=== PATIENT | female | born 1990 | race Caucasian/White ===

== ENCOUNTER → 2017-07-12 | Outpatient (CLI) | payer OTHER ==
[~2017-07-12] MED LIST: CALC600T5; CLON.5 PO; DEPA500T3 PO; ENAL5TAB PO; GEOD80CA PO; GUAN2ER PO; LACT10SO47; LEVO100T5 PO; MEDR150I9 IM; OMEGCAP21; QUET400XR PO; VENTAER INH; VITATAB PO
--- NOTE | 2017-07-12 18:46 | EKG ---
Date Performed: 07/12/2017 Time Performed: 08:00:34 PTAGE: 27 years EKG: Sinus tachycardia. Short RI interval Anterior T wave changes are nonspecific Borderline ECG Since the prior tracing, there has been no significant change PREVIOUS TRACING : 03/01/2015 12.42 DOCTOR: Mary Barnard Interpretating Date/Time 07/12/2017 18:43:30
== END ==
LOC: HCAV 07:46
DX: F63.81 Intermittent explosive disorder (principal); R94.31 Abnormal electrocardiogram [ECG] [EKG]
CPT/HCPCS: 93005

== ENCOUNTER 2017-10-18 12:44 | Emergency (ER) | payer OTHER ==
[~2017-10-18] VITALS: Ht 170.2 cm; Wt 90.0 kg
[2017-10-18 12:59] VITALS: BP 189/91; PULSE 86; RESP 26; TEMP 97.9; O2SAT 98
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
[2017-10-18 15:00] VITALS: BP 134/81; PULSE 126; RESP 20; O2SAT 98
[2017-10-18 15:58] LABS: AUTOMATED NEUTROPHIL # 11.7 TH/MM3 (1.8-7.7); BASOPHIL # 0.1 TH/MM3 (0-0.2); BASOPHIL % 0.8 % (0.0-2.0); EOSINOPHIL # 0.1 TH/MM3 (0-0.4); EOSINOPHIL % 0.4 % (0.0-4.0); HEMATOCRIT 46.1 % (35.0-46.0); HEMOGLOBIN 15.4 GM/DL (11.6-15.3); LYMPH % 24.7 % (9.0-44.0); LYMPHOCYTE # 4.3 TH/MM3 (1.0-4.8); MEAN CORPUSCULAR HEMOGLOBIN 27.3 PG (27.0-34.0); MEAN CORPUSCULAR HGB CONC 33.3 % (32.0-36.0); MEAN PLATELET VOLUME 8.4 FL (7.0-11.0); MONO % 6.1 % (0.0-8.0); PLATELET COUNT 297 TH/MM3 (150-450); RED BLOOD COUNT 5.62 MIL/MM3 (4.00-5.30); RED CELL DISTRIBUTION WIDTH 15.4 % (11.6-17.2); WHITE BLOOD COUNT 17.2 TH/MM3 (4.0-11.0)
[2017-10-18 16:24] LABS: ALBUMIN 3.6 GM/DL (3.4-5.0); AST (GOT) 24 U/L (15-37); BICARBONATE 21.7 MEQ/L (21.0-32.0); BLOOD UREA NITROGEN 22 MG/DL (7-18); CALCIUM 9.4 MG/DL (8.5-10.1); CHLORIDE 108 MEQ/L (98-107); CREATININE 1.32 MG/DL (0.50-1.00); GLOMERULAR FILTRATION RATE 49 ML/MIN (>89); GLUCOSE,RANDOM 118 MG/DL (74-106); SODIUM (NA) 143 MEQ/L (136-145)
[2017-10-18] MEDS ORDERED: LURA80 PO (16:34)
[2017-10-18] MEDS ORDERED: ENAL10TA PO (16:34)
[2017-10-18] MEDS ORDERED: FLUTI220I INH (16:34)
[2017-10-18] MEDS ORDERED: DIVA125T (16:34)
[2017-10-18] MEDS ORDERED: LEVO125T4 PO (16:34)
[2017-10-18 16:35] LABS: ALKALINE PHOSPHATASE 112 U/L (45-117); ALT (GPT) 29 U/L (10-53); TOTAL BILIRUBIN ADULT 0.5 MG/DL (0.2-1.0); TOTAL PROTEIN 7.4 GM/DL (6.4-8.2)
[2017-10-18] MEDS ORDERED: DIVA250T PO (19:09)
[2017-10-18] MEDS ORDERED: clonazePAM 0.5 MG TAB PO ONE (20:15)
[2017-10-18] MEDS ORDERED: DIVALPROEX SODIUM DELAYED RELEASE 250 MG TAB PO SCH (21:00)
[2017-10-18] MEDS ORDERED: LURASIDONE 80 MG TAB PO SCH (21:00)
[2017-10-19] MEDS ORDERED: LEVOTHYROXINE SODIUM 125 MCG TAB PO SCH (09:00)
[2017-10-19] MEDS ORDERED: ENALAPRIL MALEATE 10 MG TAB PO SCH (09:00)
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
--- NOTE | 2017-10-19 13:45 | PD ---
Physical Exam Date Seen by Provider: October 19, 2017 Time Seen by Provider: 13:43 Narrative 27-year-old female has been seen and evaluated by psychiatrist and Stokes act was lifted. Patient states she feels comfortable going home. Her mother is on her way to pick her up. She denies suicidal or homicidal ideation. Data Data Last Documented VS Vital Signs Date Time Temp Pulse Resp B/P (MAP) Pulse Ox O2 Delivery O2 Flow Rate FiO2 10/18/17 15:00 126 20 134/81 (98) 98 Room Air 10/18/17 12:59 97.9 Orders Orders Complete Blood Count With Diff (10/18/17 13:45) Comprehensive Metabolic Panel (10/18/17 13:45) Thyroid Stimulating Hormone (10/18/17 13:45) Psych Screen (10/18/17 13:45) Drug Screen, Random Urine (10/18/17 13:45) Ed Urine Pregnancytest Poc (10/18/17 13:45) Diet Regular Basic (10/18/17 Dinner) Divalproex Dr (Depakomeghann You) (10/18/17 21:00) Enalapril (Vasotec) (10/19/17 09:00) Levothyroxine (Synthroid) (10/19/17 09:00) Lurasidone (Latuda) (10/18/17 21:00) Clonazepam (Klonopin) (10/18/17 20:15) Diet Regular Basic (10/19/17 Breakfast) Diet Regular Basic (10/19/17 Lunch) Labs Laboratory Tests Test 10/18/17 12:45 10/18/17 15:00 Urine Opiates Screen NEG Urine Barbiturates Screen NEG Urine Amphetamines Screen NEG Urine Benzodiazepines Screen NEG Urine Cocaine Screen NEG Urine Cannabinoids Screen NEG White Blood Count 17.2 TH/MM3 Red Blood Count 5.62 MIL/MM3 Hemoglobin 15.4 GM/DL Hematocrit 46.1 % Mean Corpuscular Volume 82.0 FL Mean Corpuscular Hemoglobin 27.3 PG Mean Corpuscular Hemoglobin Concent 33.3 % Red Cell Distribution Width 15.4 % Platelet Count 297 TH/MM3 Mean Platelet Volume 8.4 FL Neutrophils (%) (Auto) 68.0 % Lymphocytes (%) (Auto) 24.7 % Monocytes (%) (Auto) 6.1 % Eosinophils (%) (Auto) 0.4 % Basophils (%) (Auto) 0.8 % Neutrophils # (Auto) 11.7 TH/MM3 Lymphocytes # (Auto) 4.3 TH/MM3 Monocytes # (Auto) 1.0 TH/MM3 Eosinophils # (Auto) 0.1 TH/MM3 Basophils # (Auto) 0.1 TH/MM3 CBC Comment DIFF FINAL Differential Comment Blood Urea Nitrogen 22 MG/DL Creatinine 1.32 MG/DL Random Glucose 118 MG/DL Total Protein 7.4 GM/DL Albumin 3.6 GM/DL Calcium Level 9.4 MG/DL Alkaline Phosphatase 112 U/L Aspartate Amino Transf (AST/SGOT) 24 U/L Alanine Aminotransferase (ALT/SGPT) 29 U/L Total Bilirubin 0.5 MG/DL Sodium Level 143 MEQ/L Potassium Level 4.4 MEQ/L Chloride Level 108 MEQ/L Carbon Dioxide Level 21.7 MEQ/L Anion Gap 13 MEQ/L Estimat Glomerular Filtration Rate 49 ML/MIN Thyroid Stimulating Hormone 3rd Gen 1.280 uIU/ML MDM Supervised Visit with ILA: No Diagnosis Primary Impression: Medical clearance for psychiatric admission Referrals: Psychiatrist Patient Instructions: General Instructions, Medical Clearance for Psychiatric Care (ED) Med/Other Pt SpecificInfo: No Change to Meds Disposition: 01 DISCHARGE HOME Condition: Stable VaibhavNancy October 19, 2017 13:45
== END 2017-10-19 14:01 | disposition home or self-care (01) ==
LOC: NEPJ 12:44
DX: F79 Unspecified intellectual disabilities (principal); F90.9 Attention-deficit hyperactivity disorder, unspecified type; J45.909 Unspecified asthma, uncomplicated; I10 Essential (primary) hypertension; E11.22 Type 2 diabetes mellitus with diabetic chronic kidney disease; H91.90 Unspecified hearing loss, unspecified ear; F20.9 Schizophrenia, unspecified
CPT/HCPCS: 80053; 80307; 84443; 84703; 85025; 99284

== ENCOUNTER 2017-11-04 17:14 | Emergency (ER) | payer OTHER ==
[~2017-11-04 17:14] MED LIST changes: -CALC600T5; -DEPA500T3 PO; +DIVA250T PO; +ENAL10TA PO; -ENAL5TAB PO; +FLUTI220I INH; -GEOD80CA PO; -GUAN2ER PO; -LACT10SO47; -LEVO100T5 PO; +LEVO125T4 PO; +LURA80 PO; -OMEGCAP21; -QUET400XR PO; -VENTAER INH; -VITATAB PO
[2017-11-04 17:45] VITALS: BP 111/59; PULSE 88; RESP 20; TEMP 98.1; O2SAT 98
[2017-11-04] MEDS ORDERED: OLANZapine IM 10 MG VIAL IM ONE (18:15)
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
--- NOTE | 2017-11-04 19:23 | PD ---
Data Data Last Documented VS Vital Signs Date Time Temp Pulse Resp B/P (MAP) Pulse Ox O2 Delivery O2 Flow Rate FiO2 11/04/17 17:45 98.1 88 20 111/59 (76) 98 Orders Orders Olanzapine Inj (Zyprexa Inj) (11/04/17 18:15) Complete Blood Count With Diff (11/04/17 18:02) Comprehensive Metabolic Panel (11/04/17 18:02) Psych Screen (11/04/17 18:02) Labs Laboratory Tests Test 11/04/17 19:20 White Blood Count 15.5 TH/MM3 Red Blood Count 5.38 MIL/MM3 Hemoglobin 14.6 GM/DL Hematocrit 43.6 % Mean Corpuscular Volume 80.9 FL Mean Corpuscular Hemoglobin 27.1 PG Mean Corpuscular Hemoglobin Concent 33.4 % Red Cell Distribution Width 15.3 % Platelet Count 247 TH/MM3 Mean Platelet Volume 8.1 FL Neutrophils (%) (Auto) 59.1 % Lymphocytes (%) (Auto) 32.5 % Monocytes (%) (Auto) 7.0 % Eosinophils (%) (Auto) 0.6 % Basophils (%) (Auto) 0.8 % Neutrophils # (Auto) 9.1 TH/MM3 Lymphocytes # (Auto) 5.0 TH/MM3 Monocytes # (Auto) 1.1 TH/MM3 Eosinophils # (Auto) 0.1 TH/MM3 Basophils # (Auto) 0.1 TH/MM3 CBC Comment AUTO DIFF Differential Total Cells Counted 100 Neutrophils % (Manual) 55 % Band Neutrophils % 2 % Lymphocytes % 34 % Monocytes % 6 % Eosinophils % 1 % Basophils % 2 % Neutrophils # (Manual) 8.8 TH/MM3 Differential Comment FINAL DIFF MANUAL Platelet Estimate NORMAL Platelet Morphology Comment NORMAL Blood Urea Nitrogen 27 MG/DL Creatinine 1.56 MG/DL Random Glucose 98 MG/DL Total Protein 6.6 GM/DL Albumin 3.4 GM/DL Calcium Level 9.5 MG/DL Alkaline Phosphatase 98 U/L Aspartate Amino Transf (AST/SGOT) 15 U/L Alanine Aminotransferase (ALT/SGPT) 24 U/L Total Bilirubin 0.2 MG/DL Sodium Level 141 MEQ/L Potassium Level 4.7 MEQ/L Chloride Level 108 MEQ/L Carbon Dioxide Level 21.8 MEQ/L Anion Gap 11 MEQ/L Estimat Glomerular Filtration Rate 40 ML/MIN [facility] Medical Record Reviewed: Yes Supervised Visit with ILA: No Narrative Course See previous providers notes for complete history of present illness. I was asked to follow-up in this patient's lab work for medical clearance for psychiatric evaluation. Lab work is been reviewed. WBC count is 15 which is actually improved from her previous visit. No left shift. No evidence of infectious process. The patient is medically cleared for psychiatric disposition. Diagnosis Primary Impression: Medical clearance for psychiatric admission Juan Childs Nov 04, 2017 19:23
[2017-11-04 19:48] LABS: AUTOMATED NEUTROPHIL # 9.1 TH/MM3 (1.8-7.7); BASOPHIL # 0.1 TH/MM3 (0-0.2); BASOPHIL % 0.8 % (0.0-2.0); EOSINOPHIL # 0.1 TH/MM3 (0-0.4); EOSINOPHIL % 0.6 % (0.0-4.0); HEMATOCRIT 43.6 % (35.0-46.0); HEMOGLOBIN 14.6 GM/DL (11.6-15.3); LYMPH % 32.5 % (9.0-44.0); MEAN CELL VOLUME 80.9 FL (80.0-100.0); MEAN CORPUSCULAR HEMOGLOBIN 27.1 PG (27.0-34.0); MEAN CORPUSCULAR HGB CONC 33.4 % (32.0-36.0); MEAN PLATELET VOLUME 8.1 FL (7.0-11.0); MONOCYTE # 1.1 TH/MM3 (0-0.9); NEUT % 59.1 % (16.0-70.0); PLATELET COUNT 247 TH/MM3 (150-450); RED BLOOD COUNT 5.38 MIL/MM3 (4.00-5.30); RED CELL DISTRIBUTION WIDTH 15.3 % (11.6-17.2); WHITE BLOOD COUNT 15.5 TH/MM3 (4.0-11.0)
[2017-11-04 20:29] LABS: ALKALINE PHOSPHATASE 98 U/L (45-117); ALT (GPT) 24 U/L (10-53); TOTAL BILIRUBIN ADULT 0.2 MG/DL (0.2-1.0); TOTAL PROTEIN 6.6 GM/DL (6.4-8.2)
[2017-11-04 20:34] LABS: BANDS 2 % (0-6); BASOPHILS 2 % (0-2); LYMPHOCYTES 34 % (9-44); MONOCYTES 6 % (0-8); NEUTROPHIL # MANUAL DIFF 8.8 TH/MM3 (1.8-7.7); POLYS (SEG NEUTROPHILS) 55 % (16-70)
[2017-11-04 20:35] LABS: ALBUMIN 3.4 GM/DL (3.4-5.0); AST (GOT) 15 U/L (15-37); BICARBONATE 21.8 MEQ/L (21.0-32.0); BLOOD UREA NITROGEN 27 MG/DL (7-18); CALCIUM 9.5 MG/DL (8.5-10.1); CHLORIDE 108 MEQ/L (98-107); CREATININE 1.56 MG/DL (0.50-1.00); GLOMERULAR FILTRATION RATE 40 ML/MIN (>89); GLUCOSE,RANDOM 98 MG/DL (74-106); SODIUM (NA) 141 MEQ/L (136-145)
[2017-11-05] MEDS ORDERED: ENALAPRIL MALEATE 10 MG TAB PO SCH (10:00)
[2017-11-05] MEDS ORDERED: clonazePAM 0.5 MG TAB PO SCH (10:00)
[2017-11-05] MEDS ORDERED: LURASIDONE 40 MG TAB PO ONE (10:30)
[2017-11-05] MEDS ORDERED: LURASIDONE 80 MG TAB PO ONE (10:30)
[2017-11-05] MEDS ORDERED: DIVALPROEX SODIUM DELAYED RELEASE 250 MG TAB PO ONE (10:30)
[2017-11-05 12:14] VITALS: BP 118/56; PULSE 90; RESP 16; TEMP 98.9; O2SAT 98
--- NOTE | 2017-11-05 14:32 | PD ---
Physical Exam Date Seen by Provider: Nov 05, 2017 Time Seen by Provider: 14:29 Narrative For full history and physical examination please see previous notes. Data Data Last Documented VS Vital Signs Date Time Temp Pulse Resp B/P (MAP) Pulse Ox O2 Delivery O2 Flow Rate FiO2 11/05/17 12:14 98.9 90 16 118/56 (76) 98 Room Air Orders Orders Olanzapine Inj (Zyprexa Inj) (11/04/17 18:15) Complete Blood Count With Diff (11/04/17 18:02) Comprehensive Metabolic Panel (11/04/17 18:02) Psych Screen (11/04/17 18:02) Diet Regular Basic (11/05/17 Breakfast) Clonazepam (Klonopin) (11/05/17 10:00) Divalproex (Rafa You) (11/05/17 21:00) Enalapril (Vasotec) (11/05/17 10:00) Lurasidone (Latuda) (11/05/17 21:00) Divalproex (Rafa You) (11/05/17 10:30) Lurasidone (Latuda) (11/05/17 10:30) Diet Regular Basic (11/05/17 Lunch) Ed Discharge Order (11/05/17 14:29) Labs Laboratory Tests Test 11/04/17 19:20 White Blood Count 15.5 TH/MM3 Red Blood Count 5.38 MIL/MM3 Hemoglobin 14.6 GM/DL Hematocrit 43.6 % Mean Corpuscular Volume 80.9 FL Mean Corpuscular Hemoglobin 27.1 PG Mean Corpuscular Hemoglobin Concent 33.4 % Red Cell Distribution Width 15.3 % Platelet Count 247 TH/MM3 Mean Platelet Volume 8.1 FL Neutrophils (%) (Auto) 59.1 % Lymphocytes (%) (Auto) 32.5 % Monocytes (%) (Auto) 7.0 % Eosinophils (%) (Auto) 0.6 % Basophils (%) (Auto) 0.8 % Neutrophils # (Auto) 9.1 TH/MM3 Lymphocytes # (Auto) 5.0 TH/MM3 Monocytes # (Auto) 1.1 TH/MM3 Eosinophils # (Auto) 0.1 TH/MM3 Basophils # (Auto) 0.1 TH/MM3 CBC Comment AUTO DIFF Differential Total Cells Counted 100 Neutrophils % (Manual) 55 % Band Neutrophils % 2 % Lymphocytes % 34 % Monocytes % 6 % Eosinophils % 1 % Basophils % 2 % Neutrophils # (Manual) 8.8 TH/MM3 Differential Comment FINAL DIFF MANUAL Platelet Estimate NORMAL Platelet Morphology Comment NORMAL Blood Urea Nitrogen 27 MG/DL Creatinine 1.56 MG/DL Random Glucose 98 MG/DL Total Protein 6.6 GM/DL Albumin 3.4 GM/DL Calcium Level 9.5 MG/DL Alkaline Phosphatase 98 U/L Aspartate Amino Transf (AST/SGOT) 15 U/L Alanine Aminotransferase (ALT/SGPT) 24 U/L Total Bilirubin 0.2 MG/DL Sodium Level 141 MEQ/L Potassium Level 4.7 MEQ/L Chloride Level 108 MEQ/L Carbon Dioxide Level 21.8 MEQ/L Anion Gap 11 MEQ/L Estimat Glomerular Filtration Rate 40 ML/MIN MDM Medical Record Reviewed: Yes Supervised Visit with ILA: No Narrative Course Patient was brought to the emergency department under Stokes act due to explosive behaviors at her residential facility. She was seen and evaluated emergency department, medically cleared. She was then evaluated by psychiatry. Patient was diagnosed with intellectual disability. Patient will be discharged back to [facility]. Diagnosis Primary Impression: Intellectual disability Referrals: Primary Care Physician Patient Instructions: General Instructions Additional Instruction: Follow-up with your primary doctor Follow-up with psychiatry Return to emergency department for any new or worsening symptoms Med/Other Pt SpecificInfo: No Change to Meds Disposition: 03 DISCHARGE TO SNF Condition: Stable Arlene Reddy Nov 05, 2017 14:32
--- NOTE | 2017-11-05 15:37 | PD.PSY.CON ---
Provisional Diagnosis Admission Date [place] I. Intellectual disability, unspecified, intermittent explosive disorder [place] II. Deferred History of Present Illness Service Psychiatry Consult Requested By ER Reason for Consult Aggressive behavior Primary Care Physician Unknown HPI The patient was seen this morning at 830 AM The patient is 27-year-old woman, domiciled in a [place], single, unemployed, supported by [facility], with a well no psychiatric history of of intellectual disability and intermittent explosive disorder, multiple psychiatric hospitalizations, the patient is in a psychotropic regimen consisting on Latuda 80 mg, Depakote 250 mg twice daily, clonazepam 0.5 mg daily , who presents under a Stokes act by [employer]. Per the Stokes report patient has intermediate explosive disorder and is throwing chairs and employees at the [employer]. Patient has also thrown herself into objects with no regards to her own safety or others. It is documented in the Stokes act text itself that the patient is "mentally disabled." Reviewing the electronic medical record, I note that the patient has followed with [facility] psychiatry staff on an outpatient basis in the past. She was most recently admitted to the inpatient psychiatric unit in 2016. Patient was also seen here in [facility] with a very similar presentation in October 18, 2017.P Chart reviewed. Case discussed with nursing staff. Collateral has been obtained from patient's mother,Kassandra Love, . On psychiatric evaluation the patient is calm, cooperative, communication is limited due to her deafness and language limitations. Patient does not report any issues with mood and tells me "I am happy" and she actually wanted me to play with her affect appears quite euthymic if childlike. She does not describe any current suicidal or homicidal ideation. No audiovisual hallucinations reported. No delusional material voiced. She would like to go home with her mother. Psychiatric interview is limited because of patient's intellectual disability, and I am unable to obtain any past psychiatric, family, chemical dependency or social history from the patient for the same reason. No evident physical distress. Review of Systems Constitutional: DENIES: Diaphoretic episodes, Fatigue, Fever, Weight gain, Weight loss, Chills, Dizziness, Change in appetite, Night Sweats Endocrine: DENIES: Abnorml menstrual pattern, Heat/cold intolerance, Polydipsia , Polyuria, Polyphagia Eyes: DENIES: Blurred vision, Diplopia, Eye inflammation, Eye pain, Vision loss , Photosensitivity, Double Vision Ears, nose, mouth, throat: DENIES: Tinnitus, Hearing loss, Vertigo, Nasal discharge, Oral lesions, Throat pain, Hoarseness, Ear Pain, Running Nose, Epistaxis, Sinus Pain, Toothache, Odynophagia Respiratory: DENIES: Apneas, Cough, Snoring, Wheezing, Hemoptysis, Sputum production, Shortness of breath Cardiovascular: DENIES: Chest pain, Palpitations, Syncope, Dyspnea on Exertion , PND, Lower Extremity Edema, Orthopnea, Claudication Gastrointestinal: DENIES: Abdominal pain, Black stools, Bloody stools, Constipation, Diarrhea, Nausea, Vomiting, Difficulty Swallowing, Anorexia Genitourinary: DENIES: Abnormal vaginal bleeding, Dysmenorrhea, Dyspareunia, Sexual dysfunction, Urinary frequency, Urinary incontinence, Urgency, Hematuria , Dysuria, Nocturia, Vaginal discharge Musculoskeletal: DENIES: Joint pain, Muscle aches, Stiffness, Joint Swelling, Back pain, Neck pain Integumentary: DENIES: Abnormal pigmentation, Pruritus, Rash, Nail changes, Breast masses, Breast skin changes, Nipple discharge Hematologic/lymphatic: DENIES: Bruising, Lymphadenopathy Immunologic/allergic: DENIES: Eczema, Urticaria Neurologic: DENIES: Abnormal gait, Headache, Localized weakness, Paresthesias, Seizures, Speech Problems, Tremor, Poor Balance Psychiatric: DENIES: Anxiety, Confusion, Mood changes, Depression, Hallucinations, Agitation, Suicidal Ideation, Homicidal Ideation, Delusions Past Family Social History Coded Allergies: aripiprazole (Unverified Allergy, Severe, 11/04/17) Active Scripts Clonazepam (Klonopin) 0.5 Mg Tab, 0.5 MG PO BID, #60 TAB 3 Refills Prov:Yenni Rosario MD 07/29/[address] (Divalproex DR) 250 Mg Tabdr, 250 MG PO HS for Control Seizures, # 60 TAB 0 Refills 10/18/17 Fluticasone 12 GM Inh (Flovent Hfa 12 GM Inh) 220 Mcg/Act Inh, 1 PUFF INH BID for Asthma Management, #1 INHALER 0 Refills Use daily at the same time. 10/18/17 Enalapril (Enalapril) 10 Mg Tab, 10 MG PO DAILY, #30 TAB 0 Refills 10/18/17 Levothyroxine (Levothyroxine) 125 Mcg Tab, 125 MCG PO DAILY for Thyroid, #30 TAB 0 Refills 10/18/17 Lurasidone (Latuda) 80 Mg Tab, 80 MG PO HS, #30 TAB 0 Refills 10/18/17 Medroxyprogesterone Inj (Depo-Provera Inj) 150 Mg/Ml Inj, 150 MG IM Q90D, VIAL 0 Refills 04/30/16 Current Medications Medications (Trade) Dose Ordered Sig/Inderjit Route Start Time Stop Time Status Last Admin (KlonoPIN) 0.5 mg BID PO 11/05/17 10:00 11/05/17 10:37 (Vasotec) 10 mg DAILY PO 11/05/17 10:00 11/05/17 10:50 Family Psych History No family psychiatric Social History The patient was born and raised in [facility], she lives in a [place]p, she is single, unemployed, supported by [facility], her major source of support is her mother Patient's Strengths (min. 2) Living in a structure environment Physical Exam No EPS, no withdrawal, psychomotor agitation observed Vital Signs Vital Signs Date Time Temp Pulse Resp B/P (MAP) Pulse Ox O2 Delivery O2 Flow Rate FiO2 11/05/17 12:14 98.9 90 16 118/56 (76) 98 Room Air Lab Results Test 11/04/17 19:20 White Blood Count 15.5 TH/MM3 Red Blood Count 5.38 MIL/MM3 Hemoglobin 14.6 GM/DL Hematocrit 43.6 % Mean Corpuscular Volume 80.9 FL Mean Corpuscular Hemoglobin 27.1 PG Mean Corpuscular Hemoglobin Concent 33.4 % Red Cell Distribution Width 15.3 % Platelet Count 247 TH/MM3 Mean Platelet Volume 8.1 FL Neutrophils (%) (Auto) 59.1 % Lymphocytes (%) (Auto) 32.5 % Monocytes (%) (Auto) 7.0 % Eosinophils (%) (Auto) 0.6 % Basophils (%) (Auto) 0.8 % Neutrophils # (Auto) 9.1 TH/MM3 Lymphocytes # (Auto) 5.0 TH/MM3 Monocytes # (Auto) 1.1 TH/MM3 Eosinophils # (Auto) 0.1 TH/MM3 Basophils # (Auto) 0.1 TH/MM3 CBC Comment AUTO DIFF Differential Total Cells Counted 100 Neutrophils % (Manual) 55 % Band Neutrophils % 2 % Lymphocytes % 34 % Monocytes % 6 % Eosinophils % 1 % Basophils % 2 % Neutrophils # (Manual) 8.8 TH/MM3 Differential Comment FINAL DIFF MANUAL Platelet Estimate NORMAL Platelet Morphology Comment NORMAL Blood Urea Nitrogen 27 MG/DL Creatinine 1.56 MG/DL Random Glucose 98 MG/DL Total Protein 6.6 GM/DL Albumin 3.4 GM/DL Calcium Level 9.5 MG/DL Alkaline Phosphatase 98 U/L Aspartate Amino Transf (AST/SGOT) 15 U/L Alanine Aminotransferase (ALT/SGPT) 24 U/L Total Bilirubin 0.2 MG/DL Sodium Level 141 MEQ/L Potassium Level 4.7 MEQ/L Chloride Level 108 MEQ/L Carbon Dioxide Level 21.8 MEQ/L Anion Gap 11 MEQ/L Estimat Glomerular Filtration Rate 40 ML/MIN Mental Status Examination Appearance: Appropriate Consciousness: Alert Orientation: Person Speech: Incoherent Language: Other (Quite limited) Fund of Knowledge: Inadequate Mood: Other (Happy) Affect: Other (Happy) Thought Content: Compulsive Hallucination Type: None Delusion Type: None Suicidal Ideation: No Suicidal Plan: No Suicidal Intention: No Homicidal Ideation: No Homicidal Plan: No Homicidal Intention: No Insight: Poor Judgment: Poor Assessment & Plan Problem List: (1) Intellectual disability ICD Codes: F79 - Unspecified intellectual disabilities Assessment & Plan: On my psychiatric evaluation today the patient presents at baseline, childish, with severe language limitation. There is no evidence of increased dangerousness due to her mental illness as defined under the Stokes act in this patient at this time, and she therefore does not meet the Stokes act criteria. I have lifted the Stokes act. I will order her Depakote 250 mg now, clonazepam 0.5 mg now and her dose of Latuda 80 mg now. Continue outpatient care with current psychiatrist. Assessment & Plan Estimated LOS: Alexx Herrera MD Nov 05, 2017 15:37
[2017-11-05] MEDS ORDERED: LURASIDONE 80 MG TAB PO SCH (21:00)
[2017-11-05] MEDS ORDERED: DIVALPROEX SODIUM DELAYED RELEASE 250 MG TAB PO SCH (21:00)
== END 2017-11-05 15:30 ==
LOC: NEPD 17:14 → NEPJ 11-05 15:30
DX: F79 Unspecified intellectual disabilities (principal); H91.93 Unspecified hearing loss, bilateral; F31.9 Bipolar disorder, unspecified; J45.909 Unspecified asthma, uncomplicated; Q99.8 Other specified chromosome abnormalities; E03.9 Hypothyroidism, unspecified; F25.9 Schizoaffective disorder, unspecified; N18.9 Chronic kidney disease, unspecified
CPT/HCPCS: 80053; 85007; 85027; 96372